=== PATIENT | female | born 1960 | race Two or more races ===

== ENCOUNTER 2016-05-03 20:01 | Emergency (ER) | payer MEDICAID ==
[~2016-05-03] VITALS: Ht 152.4 cm; Wt 68.0 kg
[2016-05-04] MEDS ORDERED: ACETAMINOPHEN 325 MG TABLET PO ONE
[2016-05-04] MEDS ORDERED: ACETAMINOPHEN ES 500 MG TABLET ONE (00:03)
[2016-05-04 01:24] VITALS: BP 119/75
== END 2016-05-04 01:24 | disposition home or self-care (01) ==
LOC: ER 20:03
DX: R50.9 Fever, unspecified (principal); E05.90 Thyrotoxicosis, unspecified without thyrotoxic crisis or storm; J32.9 Chronic sinusitis, unspecified
CPT/HCPCS: 71010; 99283; A4606; Z7610